=== PATIENT | male | born 1990 | race Caucasian/White ===

== ENCOUNTER → 2021-03-17 09:51 | Outpatient (CLI) | payer OTHER, SELFPAY ==
[2021-03-17 10:51] LABS: Cholesterol 198 mg/dL (140-199); HDL Cholesterol 50 mg/dL (40-60); LDL Cholesterol Calculated 128 mg/dL (<100); Triglycerides 98 mg/dL (35-150)
[2021-03-19 06:04] LABS: Lipoprotein (a) 28.2 nmol/L (<75.0)
== END ==
PROVIDERS: Referring Provider Internal Medicine Cardiovascular Disease; Visit Provider Internal Medicine Cardiovascular Disease
DX: Z82.49 Family history of ischemic heart disease and other diseases of the circulatory system (principal)
CPT/HCPCS: 36415; 80061; 83695

== ENCOUNTER → 2022-11-23 12:30 | Outpatient (CLI) | payer OTHER, SELFPAY ==
--- NOTE | 2022-11-23 | DI.ECHO.S_ITS ---
[facility] +---------+ : : [address] : [place] : : : : [id number] : : : : Phone: [phone] +---------+ Echocardiogram Report + + :Name: DAMARIS MENDOZA Study Date: 11/23/2022 Height: 69 in : :[facility] ReadingLocation: Weight: 160 lb : : Gender: Male BSA: 1.9 m2 : :: 1990 Age: 32 yrs BP: 132/82 mmHg: :Reason For Study: Cardiomyopathy : :Ordering Physician: SHERI, : :DENA Performed By: Sindi Harris : :Referring: DENA DEGROOT : + + Interpretation Summary Limited Echo: 1) Normal left ventricular size and thickness with low normal systolic function (EF 50-55%). 2) No prior Echo available for comparison. Procedure: A two-dimensional transthoracic echocardiogram with color flow and Doppler was performed in limited views only. The study quality was technically adequate. The patient had an echocardiogram, but there is no comparison study available. The patient was in normal sinus rhythm during the exam. Left Ventricle: The left ventricle is normal in size and wall thickness. The ejection fraction is estimated to be 50-55%. Right Ventricle: The right ventricle grossly appears normal in size with probable normal systolic function. Great Vessels: The IVC is of normal diameter and collapses greater than 50% with a sniff. This suggests a low right atrial pressure of 3 mm Hg. Pericardium/ Pleura There is no pericardial effusion. MMode/2D Measurements & Calculations LVIDd: 5.0 cm LVLs ap4: 6.4 cm LVIDs: 3.8 cm FS: 24.0 % IVSd: 0.70 cm LVPWd: 0.90 cm LV tovar. diameter/BSA (cm/m^2): 2.7 LV sys. diameter/BSA (cm/m^2): 2.0 LVLd ap2: 7.9 cm LVLs ap2: 6.3 cm Reading Physician:08:50 AM
== END ==
PROVIDERS: Referring Provider Internal Medicine Cardiovascular Disease; Visit Provider Internal Medicine Cardiovascular Disease
DX: I42.9 Cardiomyopathy, unspecified (principal)
CPT/HCPCS: 93307